=== PATIENT | female | born 1955 | race Caucasian/White ===

== ENCOUNTER 2018-07-06 15:22 | Emergency (ER) | payer OTHER ==
[~2018-07-06] VITALS: Wt 78.0 kg
[2018-07-06] MEDS ORDERED: SOD CHLORIDE 0.9% 1,000 ML IV STA (15:53)
[2018-07-06] MEDS ORDERED: morphine 4 MG/ML VIAL IV STA (15:53)
[2018-07-06] MEDS ORDERED: ONDANSETRON 4 MG INJ IV STA (15:53)
[2018-07-06] MEDS ORDERED: KETOROLAC 30 MG INJ IV STA (15:53)
[2018-07-06] MEDS ORDERED: ACETAMINOPHEN 500 MG TAB PO STA (15:54)
[2018-07-06] MEDS ORDERED: LISI-471 PO (17:26)
[2018-07-06] MEDS ORDERED: PRAV10TA43 PO (17:26)
[2018-07-06] MEDS ORDERED: EMPA25TA PO (17:26)
[2018-07-06] MEDS ORDERED: METF-480 PO (17:26)
[2018-07-06] MEDS ORDERED: GLIM4TAB PO (17:26)
[2018-07-06] MEDS ORDERED: AMLO-218 PO (17:26)
[2018-07-06] MEDS ORDERED: ERGO500013 PO (17:28)
[2018-07-06] MEDS ORDERED: IBUPROFEN 800 MG TAB PO ONE (17:30)
[2018-07-06] MEDS ORDERED: CEFTRIAXONE 1 GM/50 ML (PMX) 50 ML IVPB ONE (17:30)
[2018-07-06 17:39] VITALS: BP 120/60; PULSE 109; RESP 18
[2018-07-06] MEDS ORDERED: FLUCONAZOLE 200 MG TAB PO ONE (18:30)
[2018-07-06] MEDS ORDERED: IBUP800T48 PO (18:30)
[2018-07-06] MEDS ORDERED: CIPR500T4 PO (18:30)
--- NOTE | 2018-07-13 12:43 | ERD ---
ER Documentation Chief Complaint Chief Complaint DYSURIA X 1 WEEK, ALREADY TOOK ANTIBIOTICS HPI This is a very pleasant 63-year-old female. She presents to the emergency department complaining of frequency urgency and dysuria and vaginal pruritus. Patient has history of [id number] diabetes mellitus and hypertension. The patient indicated that she recently was diagnosed with urinary tract infection. She initially had completed 7 days of antibiotics but her symptoms but still persisted. Therefore she was placed on another antibiotic which she is not aware of but takes 4 times a day and indicated she completed this yesterday after a 5-day course. She had a tactile fever with shaking and chills. She denies any chest pain. She has had a nonproductive cough. She denies any shortness of breath at rest or exertion. She had no recent hospitalizations. She denies any hematuria. She states she is not currently at risk for any STDs. She had no abnormal purulent discharge from the vagina. She does however indicates she has had significant vaginal pruritus. ROS All systems reviewed and are negative except as per history of present illness. Medications Home Meds Active Scripts Ciprofloxacin Hcl* (Ciprofloxacin Hcl*) 500 Mg Tablet, 500 MG PO BID, #20 TAB Prov:ANTELMO CANELA MD 07/06/18 Ibuprofen* (Motrin*) 800 Mg Tab, 800 MG PO Q6H PRN for PAIN AND OR ELEVATED TEMP, #30 TAB Prov:ANTELMO CANELA MD 07/06/18 Reported Medications Ergocalciferol (Vitamin D2) (VITAMIN D2) 50,000 Unit Capsule, 82683 UNIT PO WEEKLY for , CAP 07/06/18 Amlodipine Besylate* (Norvasc*) 10 Mg Tablet, 10 MG PO DAILY, TAB 07/06/18 Empagliflozin (Jardiance) 25 Mg Tablet, 12.5 MG PO DAILY, TAB 07/06/18 Glimepiride* (Glimepiride*) 4 Mg Tablet, 4 MG PO WITH BREAKFAST, TAB 07/06/18 Lisinopril* (Lisinopril*) 20 Mg Tablet, 20 MG PO DAILY, #30 TAB 07/06/18 Pravastatin Sodium* (Pravastatin Sodium*) 10 Mg Tablet, 10 MG PO HS, TAB 07/06/18 Metformin* (Glucophage*) 850 Mg Tablet, 850 MG PO TIDM A, #90 TAB 07/06/18 Allergies Allergies: Coded Allergies: No Known Allergy (Unverified , 07/06/18) PMhx/Soc History of Surgery: Yes (hysterectomy) Hx Cardiac Disorders: Yes (hypertension, diabetes mellitus) Hx Miscellaneous Medical Probl: Yes (urinary tract infection) Hx Alcohol Use: No Hx Substance Use: No Hx Tobacco Use: No Smoking Status: Never smoker Physical Exam Physical Exam Constitutional:Well-developed. Well-nourished. HEENT:Normocephalic. Atraumatic.Pupils were equal round reactive to light. Neck: No nuchal rigidity. No lymphadenopathy. No posterior cervical spine tenderness or step-offs. Respiratory: Not using accessory muscles of respiration.Lungs were clear to auscultation on the left with slight decreased breath sounds in the right lower lung base.. No rhonchi. No rales. No wheezing. Cardiovascular: Regular rate regular rhythm.No murmurs. No rubs were appreciated.S1, S2 normal. Distal pulses are palpable 2+ bilaterally. GI: Abdomen was soft. Nontender. Non Distended. No pulsatile abdominal masses or bruits. No rebound. No guarding. Bowel sounds were present and normal. : External genital region appear grossly normal with no ulcers. Pelvic exam was performed by myself the patient denied a female nurse disc pad grinder present. There is no endocervical discharge. No cervical motion tenderness no adnexal tenderness or adnexal masses. Skin: No petechia, no purpura. No lesions on the palms or the soles of the feet. No maculopapular rash. NEURO: Patient was alert, awake, orientated x3.No facial droop. Gait observed and normal with no ataxia. Results 24 hrs Laboratory Tests Test 07/06/18 16:14 White Blood Count 13.2 10^3/ul Red Blood Count 4.62 10^6/ul Hemoglobin 11.3 g/dl Hematocrit 36.9 % Mean Corpuscular Volume 79.9 fl Mean Corpuscular Hemoglobin 24.5 pg Mean Corpuscular Hemoglobin Concent 30.6 g/dl Red Cell Distribution Width 15.9 % Platelet Count 166 10^3/UL Mean Platelet Volume 11.8 fl Immature Granulocytes % 0.800 % Neutrophils % 82.2 % Lymphocytes % 8.8 % Monocytes % 6.5 % Eosinophils % 1.5 % Basophils % 0.2 % Nucleated Red Blood Cells % 0.0 /100WBC Immature Granulocytes # 0.100 10^3/ul Neutrophils # 10.9 10^3/ul Lymphocytes # 1.2 10^3/ul Monocytes # 0.9 10^3/ul Eosinophils # 0.2 10^3/ul Basophils # 0.0 10^3/ul Nucleated Red Blood Cells # 0.0 10^3/ul Prothrombin Time 12.2 Sec Prothrombin Time Ratio 1.0 INR International Normalized Ratio 0.89 Activated Partial Thromboplast Time 27.5 Sec Urine Color STRAW Urine Clarity SLIGHTLY CLOUDY Urine pH 6.0 Urine Specific [place] 1.007 Urine Ketones NEGATIVE mg/dL Urine Nitrite NEGATIVE mg/dL Urine Bilirubin NEGATIVE mg/dL Urine Urobilinogen NEGATIVE mg/dL Urine Leukocyte Esterase 2+ Elena/ul Urine Microscopic RBC 3 /HPF Urine Microscopic WBC 3 /HPF Urine Squamous Epithelial Cells FEW /HPF Urine Hemoglobin 1+ mg/dL Urine Glucose 3+ mg/dL Urine Total Protein NEGATIVE mg/dl Sodium Level 138 mmol/L Potassium Level 4.4 mmol/L Chloride Level 103 mmol/L Carbon Dioxide Level 26 mmol/L Anion Gap 9 Blood Urea Nitrogen 16 mg/dl Creatinine 0.71 mg/dl Est Glomerular Filtrat Rate mL/min > 60 mL/min Glucose Level 242 mg/dl Calcium Level 9.1 mg/dl Total Bilirubin 0.4 mg/dl Direct Bilirubin 0.00 mg/dl Indirect Bilirubin 0.4 mg/dl Aspartate Amino Transf (AST/SGOT) 20 IU/L Alanine Aminotransferase (ALT/SGPT) 16 IU/L Alkaline Phosphatase 99 IU/L Troponin I < 0.012 ng/ml Total Protein 7.7 g/dl Albumin 4.1 g/dl Globulin 3.60 g/dl Albumin/Globulin Ratio 1.13 Amylase Level 83 U/L Lipase 173 U/L Current Medications Medications Dose Sig/Earle Start Time Status Last (Trade) Ordered Route PRN Stop Time Admin Dose Reason Admin Sodium 1,000 ml @ Q1H STAT 07/06/18 DC 07/06/18 Chloride 1,000 mls/hr IV 15:53 07/06/18 16:05 16:52 Morphine 4 mg ONCE STAT 07/06/18 DC 07/06/18 Sulfate IV 15:53 07/06/18 16:04 (morphine) 15:55 Ondansetron 4 mg ONCE STAT 07/06/18 DC 07/06/18 HCl (Zofran IV 15:53 07/06/18 16:05 Inj) 15:55 Ketorolac 30 mg ONCE STAT 07/06/18 DC 07/06/18 Tromethamine IV 15:53 07/06/18 16:05 (Toradol) 15:55 1,000 mg ONCE STAT 07/06/18 DC 07/06/18 Acetaminophen PO 15:54 07/06/18 16:05 (Tylenol 15:55 Tab) Ibuprofen 800 mg ONCE ONCE 07/06/18 DC 07/06/18 (Motrin) PO 17:30 07/06/18 17:41 17:35 Ceftriaxone 50 ml @ ONCE ONCE 07/06/18 DC 07/06/18 Sodium 100 mls/hr IVPB 17:30 07/06/18 17:41 17:59 Fluconazole 200 mg ONCE ONCE 07/06/18 DC 07/06/18 (Diflucan) PO 18:30 07/06/18 18:14 18:31 Procedures/MDM This is a 63-year-old female presented to the emergency department with signs of acute cystitis but recently completed 2 courses of antibiotics. The patient had mild leukocytosis and a fever. Urinalysis had no pyuria but the patient was very adamant that she would like a course of IV antibiotics as she has been dealing with frequent urinary tract infections for several years. She was given a dose of IV ceftriaxone. Urine culture was sent prior to antibiotics. I did indicate to the patient however that I felt her symptoms were more likely a result of vaginal candidiasis. The patient was given Diflucan in the emergency department. She indicated her last dose of antipyretics have been 24 hours prior to arrival. She was given antipyretics in the emergency department now was afebrile and stated she felt comfortable being discharged home. She was discharged home with a further dose of Diflucan to treat her vaginal candidiasis. The patient was discharged home in fair condition. They were instructed to return to the emergency department at any time if there was any worsening of their condition. The patient stated they would follow up with their PCP in the next 24-48 hours to initiate a suitable medication regimen under the care of their PCP as well as to allow their PCP to monitor any drug reactions. The patient was discharged home with prescriptions after they gave informed cons ent to the new medication. They were also fully informed by myself on the adverse effects and adverse drug interactions in order to provide adequate safeguards to prevent possible adverse reactions to medications. I obtained a 12-lead EKG tracing to rule for atypical myocardial infarction. 12 Lead EKG tracing ordered and reviewed by myself showed: Sinus tachycardia 108 bpm and no arrhythmia. AK interval normal. QRS duration normal. No ST segment elevation No ST segment depression. No changes consistent with acute ischemia. Departure Diagnosis: Primary Impression: Pyelonephritis Additional Impression: Vaginal candidiasis Condition: Stable Patient Instructions: Urinary Tract Infections in Women, Pyelonephritis, Female (Adult) ANTELMO CANELA MD Jul 13, 2018 12:43
== END 2018-07-06 18:37 | disposition home or self-care (01) ==
LOC: E/R 15:22
DX: N12 Tubulo-interstitial nephritis, not specified as acute or chronic (principal); B37.3 Candidiasis of vulva and vagina; E11.9 Type 2 diabetes mellitus without complications; I10 Essential (primary) hypertension; Z79.84 Long term (current) use of oral hypoglycemic drugs
CPT/HCPCS: 36415; 71045; 80053; 81001; 82150; 83690; 84484; 85025; 85610; 85730; 87040; 87086; 87400; 93005; 96374; 96375; J0696; J1885; J2270; J2405; J7030; Z7502; Z7610